=== PATIENT | female | born 1990 | race Two or more races ===

== ENCOUNTER 2021-08-02 18:46 | Emergency (ER) | payer OTHER ==
[~2021-08-02] VITALS: Ht 149.9 cm; Wt 83.5 kg
[2021-08-02] MEDS ORDERED: VISTARIL25 MG PO (22:48)
== END 2021-08-02 22:51 | disposition home or self-care (01) ==
LOC: ER 18:46
DX: F41.0 Panic disorder [episodic paroxysmal anxiety] (principal)